=== PATIENT | female | born 1970 | race Caucasian/White ===

== ENCOUNTER 2024-08-13 16:08 | Emergency (ER) | payer MEDICARE, MEDICAID, SELFPAY ==
--- NOTE | ~2024-08-13 | XR_ITS ---
CLINICAL HISTORY: sob, cough 2 view chest x-ray Comparison: None Findings: No consolidation or effusion. Heart size is normal. No acute fracture. IMPRESSION: 1. No acute findings. This document has been electronically signed by: Colette Womack MD on 08/13/2024 18:05:24
[2024-08-13 16:18] VITALS: BP 113/68; PULSE 93; RESP 22; TEMP 37.1; O2SAT 96; BMI 39.0
--- NOTE | 2024-08-13 16:21 | ED_ITS ---
HPI - General Adult General Chief complaint: Dyspnea Stated complaint: cold symptoms, cough Time Seen by Provider: 08/13/24 18:59 Source: patient and family Limitations: language barrier History of Present Illness ED Provider: Bessy Waldrop PA-C HPI narrative: 53-year-old female with a history of asthma presents with cough and cold symptoms x4 days. Associated bronchospasm type cough, sore throat, congestion headache. Denies known fever. Denies sick contacts with same symptoms. Related Data Previous Rx's ?Medication ?Instructions ?Recorded prednisone 20 mg tablet 40 mg (2 x 20 mg) PO DAILY #8 tabs 08/13/24 Allergies Allergy/AdvReac Type Severity Reaction Status Date / Time No Known Allergies Allergy Verified 08/13/24 16:22 Review of Systems Review of Systems: Yes all other systems are reviewed and are negative Constitutional: Constitutional: Denies fatigue and Denies fever(s) ENT: Reports sore throat Cardiovascular: Cardiovascular: Denies chest pain and Reports dyspnea Respiratory: Respiratory: Reports chest congestion, Reports cough, Reports dyspnea and Reports wheezing Endocrine: Endocrine: Denies fatigue Allergic/Immunologic: Allergic/Immunologic: Reports wheezing PMFSH Past Medical History Attestation statement: The following information was validated with the patient. Social History Social History Advance Directives: No Advance Directives Information Provided: No Do you have a plan to hurt others: No Plan Physical Exam ED Vital Signs: Vital Signs - 24 hr 08/13/24 16:18 08/13/24 17:11 08/13/24 18:12 Temperature 98.8 F 98.1 F Pulse Rate 93 100 115 H Respiratory Rate 22 H 24 H 16 Blood Pressure 113/68 134/95 H Pulse Oximetry 96 100 Oxygen Delivery Method Room Air Room Air 08/13/24 19:43 08/13/24 20:03 Temperature 98.6 F Pulse Rate 98 117 H Respiratory Rate 18 16 Blood Pressure 109/74 Pulse Oximetry 96 Oxygen Delivery Method Room Air BMI result Body Mass Index 39.0 Const Other: Alert Orientation/consciousness: patient oriented x3 Resp Other: No wheezing, appropriate air movement, active bronchospasm cough Skin Other: Warm dry no rash Neuro General: patient oriented x3, no focal motor deficits and CN's II-XI intact bilaterally Psych Other: Calm cooperative Course Course Course Narrative: This is a Rapid Medical Examination (RME) performed by Rito Peck PA-C in triage. Full HPI, ROS, assessment and treatment plan per primary provider in the Main ED. 53 yo female hx of asthma here for headache, sob, chest tightness, dry cough, and sore throat x4 days. + audible wheezes. lung sounds diminished. Plan: viral/ strep swabs, CXR, ED bronch protocol Reevaluation(s) Reevaluation #1: Improved after 1 updraft eager for discharge Medications Administered Discontinued Medications Generic Name Dose Route Start Last Admin Trade Name Freq PRN Reason Stop Dose Admin Albuterol Sulfate 7.5 mg 08/13/24 19:25 08/13/24 19:41 Albuterol Sulfate (0.083%) 2.5 Mg/3 Ml Vial.Neb INHALE 08/13/24 19:26 7.5 mg ONCE ONE Administration Albuterol Sulfate 5 mg/ 0 mg 08/13/24 17:05 08/13/24 17:11 Albuterol/Ipratropium 3 ml INHALE 08/13/24 17:06 1 each ONCE ONE Administration Prednisone 40 mg 08/13/24 19:25 08/13/24 19:56 Prednisone 20 Mg Tablet PO 08/13/24 19:26 40 mg ONCE ONE Administration Medical Decision Making Medical Decision Making MDM Narrative: 53-year-old female with a history of asthma presents with cough and cold symptoms x4 days. Associated bronchospasm type cough, sore throat, congestion headache. Denies known fever. Denies sick contacts with same symptoms. Problem: Asthma History: Per patient I have considered the following differential diagnoses: Asthma, bronchitis, pneumonia, viral syndrome Plan: Patient here with mild asthma exacerbation likely in the setting of a virus, viral panel and chest x-ray were obtained from triage. We will give an updraft and steroid and discharged home with steroid, she has a nebulizer at home. I have independently reviewed the following tests: Labs: Viral panel negative Chest x-ray:IMPRESSION: 1. No acute findings. This document has been electronically signed by: Colette Womack MD on 08/13/2024 18:05:24 Lab Data Labs: Lab Results 08/13/24 Range/Units 16:31 Influenza Type A (PCR) NEGATIVE (Negative) Influenza Type B (PCR) NEGATIVE (Negative) RSV RNA Qual (PCR) NEGATIVE (Negative) SARS-CoV-2 RNA (RT-PCR) NEGATIVE (Negative) S. pyogenes GrpA STACEY Negative (Negative) Discharge Plan Discharge Clinical Impression: Asthma with exacerbation, Acute viral syndrome Patient Disposition: Home, Self-Care Additional Instructions: Patient left without the benefit of her discharge instructions Prescriptions: New prednisone 20 mg tablet 40 mg PO DAILY Qty: 8 0RF Print Language: Sinhala
[2024-08-13 16:50] LABS: IDNOW Serial# 58CA691E
[2024-08-13 16:51] LABS: Strep A Nucleic Acid Negative (Negative)
[2024-08-13 17:11] VITALS: PULSE 100; RESP 24; O2SAT 98
[2024-08-13] MEDS: Albuterol Sulfate 5 MG, Albuterol/Iprat 2.5/0.5MG 3 ML 3 ML INHALE (17:11)
[2024-08-13 17:17] LABS: Influenza A PCR NEGATIVE (Negative); Influenza B PCR NEGATIVE (Negative); Resp Syncy Virus RNA Qual PCR NEGATIVE (Negative); SARS COV2 PCR INHOUSE NEGATIVE (Negative)
[2024-08-13 18:12] VITALS: BP 134/95; PULSE 115; RESP 16; TEMP 36.7; O2SAT 100
[2024-08-13] MEDS: Albuterol Sulfate (0.083%) 2.5 MG/3 ML VIAL.NEB 7.5 MG INHALE (19:41)
[2024-08-13 19:43] VITALS: PULSE 98; RESP 18; O2SAT 99
[2024-08-13] MEDS: predniSONE 20 MG TABLET 40 MG PO (19:56)
[2024-08-13 20:03] VITALS: BP 109/74; PULSE 117; RESP 16; TEMP 37; O2SAT 96
[2024-08-13 22:20] VITALS: BP 109/74; PULSE 117; RESP 16; TEMP 37; O2SAT 96
== END 2024-08-13 22:21 | disposition home or self-care (01) ==
PROVIDERS: Physician Assistant Medical; Emergency Provider Internal Medicine; PCP Internal Medicine
DX: J45.901 Unspecified asthma with (acute) exacerbation (principal); B34.9 Viral infection, unspecified; J02.9 Acute pharyngitis, unspecified; R06.02 Shortness of breath; R51.9 Headache, unspecified; Z03.818 Encounter for observation for suspected exposure to other biological agents ruled out
CPT/HCPCS: 0241U; 71046; 87651; 94640; 99284

== ENCOUNTER → 2024-08-13 16:22 | Outpatient (BNV) | payer MEDICARE, MEDICAID, SELFPAY | PROVIDERS: Emergency Provider Internal Medicine; PCP Internal Medicine; Visit Provider Radiology Diagnostic Radiology | DX: R05.9 Cough, unspecified (principal) | CPT/HCPCS: 71046 ==